=== PATIENT | female | born 2000 | race Caucasian/White ===

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

== ENCOUNTER 2024-03-30 14:40 | Emergency (ER) | payer MEDICAID, OTHER ==
[~2024-03-30] VITALS: Ht 170.2 cm; Wt 75.9 kg
[2024-03-30 15:00] VITALS: BP 116/71; PULSE 77; RESP 16; TEMP 97.6; O2SAT 100
[2024-03-30] MEDS ORDERED: HYDR28CR14 TOP (15:47)
[2024-03-30] MEDS ORDERED: PRED10TA23 PO (15:47)
== END 2024-03-30 16:02 | disposition home or self-care (01) ==
LOC: ER 14:41
DX: L23.7 Allergic contact dermatitis due to plants, except food (principal); Z79.899 Other long term (current) drug therapy
CPT/HCPCS: 99283